=== PATIENT | male | born 1990 | race Caucasian/White ===

== ENCOUNTER 2021-03-30 01:01 | Inpatient (IN) | payer OTHER ==
[~2021-03-30] VITALS: Ht 177.8 cm; Wt 80.0 kg
[2021-03-30] MEDS ORDERED: VANCOMYCIN 1 GM VIAL ONE (01:26)
[2021-03-30] MEDS ORDERED: VANCOMYCIN 1 GM in IV D5W 250 ML IV ONE (01:30)
--- NOTE | 2021-03-30 01:41 | NUR ---
called lab for covid swab
--- NOTE | 2021-03-30 01:50 | NUR ---
pt brought in with police escorts, pt aao x4, no resp distress noted, breathing even and unlabored. c/o redness on jaylin upper and lower extremities for 2 weeks. denies any use for abx, admits to using iv drugs. pt on monitor, vss
--- NOTE | 2021-03-30 02:02 | NUR ---
covid swab sent to lab
[2021-03-30 02:17] LABS: BASOPHILS % (AUTO) 0.2 % (0.0-2.0); HEMATOCRIT 33 % (39-51); HEMOGLOBIN 10.6 g/dL (13.5-17.5); LYMPHOCYTES # (AUTO) 1.3 K/uL (0.8-4.8); LYMPHOCYTES % (AUTO) 9.4 % (20.0-44.0); MEAN CORPUSCULAR HGB CONC 33 g/dl (31.0-36.0); MEAN CORPUSCULAR VOLUME 84 fL (80-96); MONOCYTES # (AUTO) 0.9 K/uL (0.1-1.30); MONOCYTES % (AUTO) 6.5 % (2.0-12.0); NEUTROPHILS # (AUTO) 12.1 K/uL (1.8-8.9); NEUTROPHILS % (AUTO) 83.9 % (43.0-81.0); PLATELET COUNT (AUTO) 401 K/uL (150-450); RED BLOOD CELL COUNT(AUTO) 3.88 MIL/uL (4.5-6.0); WHITE BLOOD COUNT (AUTO) 14.4 K/uL (4.3-11.0)
[2021-03-30 02:25] LABS: CALCIUM, SERUM 9.4 mg/dL (8.5-10.1); CREATININE 1.6 mg/dL (0.6-1.3); POTASSIUM 3.7 mmol/L (3.5-5.1)
[2021-03-30 02:31] LABS: ALBUMIN 3.2 g/dL (3.4-5.0); BILIRUBIN,DIRECT 0.1 mg/dL (0.0-0.2); BILIRUBIN,TOTAL 0.3 mg/dL (0.2-1.0); TOTAL PROTEIN, SERUM 10.1 g/dL (6.4-8.2)
--- NOTE | 2021-03-30 02:31 | NUR ---
MULTIPLE ATTEMPTS TO START IV LINE , UNSUCCESFUL. MADE AWARE. WOOD [employer]UB NECK WHIPPER AWARE FOR PICC LINE INSERTION
[2021-03-30] MEDS ORDERED: Z GUARD REMEDY 2 OZ OINT TP PRN (04:00)
[2021-03-30] MEDS ORDERED: MAG HYDROX/AL HYDROX/SIMETH 30 ML UDC PO PRN (04:00)
[2021-03-30] MEDS ORDERED: MAGNESIUM HYDROXIDE 30 ML UDC PO PRN (04:00)
[2021-03-30] MEDS ORDERED: IV NS 0.9% 1,000 ML IV PRN (04:00)
[2021-03-30] MEDS ORDERED: ONDANSETRON HCL/PF 4 MG/2 ML VIAL IVP PRN (04:00)
[2021-03-30] MEDS ORDERED: ACETAMINOPHEN 325 MG TABLET PO PRN (04:00)
--- NOTE | 2021-03-30 04:05 | NUR ---
gave pt nourishment, all needs attended at this time
--- NOTE | 2021-03-30 05:30 | NUR ---
pt resting at this time, vss, 2 police officers at bed side at all times
[2021-03-30] MEDS ORDERED: PIPERACILLIN /TAZOBACTAM 4.5 G in IV D5W 50 ML IV SCH (06:00)
--- NOTE | 2021-03-30 07:12 | NUR ---
PICC LINE CONSENT PLACED IN CHART
[2021-03-30] MEDS: ZOSYN IVPB 3.375 G in IV D5W 50ml IV SCH ×3 (09:25→20:01)
[2021-03-30] MEDS ORDERED: PANTOPRAZOLE 40 MG TABLET.DR PO ONE (10:14)
[2021-03-30] MEDS: PANTOPRAZOLE 40 MG TABLET.DR PO SCH (10:15)
--- NOTE | 2021-03-30 10:17 | NUR ---
PICC LINE NURSE AT BEDSIDE. PATIENT A/OX4, BREATHING EVEN AND UNLABORED, NO SOB NOTED. NEEDS ATTENDED. KEPT COMFORTABLE.
--- NOTE | 2021-03-30 10:37 | NUR ---
REPORT GIVEN TO ALEISHA MARTÍNEZ FOR STEPH.
--- NOTE | 2021-03-30 10:50 | NUR ---
ALBER PICC LINE INSERTED.
[2021-03-30 11:20] VITALS: BP 139/75
--- NOTE | 2021-03-30 11:20 | NUR ---
MS METAL PAINTER NOTES RECEIVED PATIENT FROM ER VIA GURNEY ESCORTED BY 2 [employer] OFFICERS. ON ROOM AIR, BREATHING EVENLY AND UNLABORED. NOT IN DISTRESS. WITHOUT COMPLAINTS OF PAIN OR DISCOMFORT AT THIS TIME. MADE COMFORTABLE ON BED. SKIN ASSESSMENT DONE. WITH IV ACCESS AT RIGHT UPPER ARM G20 AND AT LEFT UPPER ARM PICC LINE, BOTH SALINE LOCKED, INTACT AND PATENT. SAFETY MEASURES IN PLACED. CALL LIGHT WITHIN EASY REACH. BED ON LOWEST AND LOCKED POSITION WITH SIDE RAILS UP X2. WILL CONTINUE TO MONITOR.
--- NOTE | 2021-03-30 11:23 | NUR ---
PATIENT TRANSFERRED TO ROOM 317-1 W/ PD, IN NO DISTRESS NOTED. ENDORSED TO LAURI MARTÍNEZ.
--- NOTE | 2021-03-30 11:32 | NUR ---
WOUND CARE CONSULT: PT SEEN WITH [employer] OFFICERS AT BEDSIDE. PT PRESENTS WITH BILATERAL ARM SWELLING/REDNESS WITH CRUSTED AREAS WITH PURULENT DRAINAGE WELL CRUSTED RED AREAS TO FEET AND ANKLES, PRESENT ON ADMISSION. DR CESPEDES NOTIFIED OF DPM CONSULT. FOR UPPER EXTREMITIES, DEFER TO PMD FOR POSSIBLE GENERAL SURGERY CONSULT. RECOMMENDATIONS MADE FOR SKIN PROTECTION (DRY DSG ) TO UPPER EXTREMITIES. DISCUSSED WITH NURSING STAFF. MD IN AGREEMENT WITH PLAN OF CARE.
[2021-03-30 12:00] VITALS: BP 139/75
[2021-03-30] MEDS ORDERED: LIDOCAINE 2% JEL 5 ML TUBE MC ONE (12:30)
[2021-03-30] MEDS: VANCOMYCIN 1.25 GM in IV D5W 250 ML IV SCH (13:35)
[2021-03-30] MEDS: ENOXAPARIN SODIUM 40 MG/0.4 ML DISP.SYRIN SQ SCH (13:38)
[2021-03-30 16:00] VITALS: BP 130/60
[2021-03-30] MEDS ORDERED: LIDOCAINE 2%-EPI 1:100,000 30 ML VIAL TP ONE (16:00)
--- NOTE | 2021-03-30 16:10 | NUR ---
MS RN NOTES ASSISTED SURGERY NURSE FOR INCISION AND DRAINAGE ON BOTH ARMS OF THE PATIENT. CONSENT FORM SIGNED. APPLIED WOUND DRESSING.
--- NOTE | 2021-03-30 19:20 | NUR ---
MS RN CLOSING NOTES PATIENT IS AWAKE, A/0 X4. ON ROOM AIR, BREATHING EVENLY AND UNLABORED. NOT IN DISTRESS. WITHOUT COMPLAINTS OF PAIN OR DISCOMFORT AT THIS TIME. MADE COMFORTABLE ON BED. WITH IV ACCESS AT RIGHT UPPER ARM G20 AND AT LEFT UPPER ARM PICC LINE, BOTH SALINE LOCKED, INTACT AND PATENT. SAFETY MEASURES IN PLACED. CALL LIGHT WITHIN EASY REACH. BED ON LOWEST AND LOCKED POSITION WITH SIDE RAILS UP X2. WILL ENDORSE TO NEXT SHIFT FOR STEPH.
--- NOTE | 2021-03-30 19:45 | NUR ---
MS RN OPENING NOTES: RECEIVED PATIENT AWAKE IN BED, A/OX4 ABLE TO MAKE NEEDS KNOWN, BED IN LOW POSITION, CALL LIGHTS WITHIN REACH,, NO COMPLAIN OF PAIN AND DISCOMFORT AT THIS TIME, PATIENT WITH ALBER PICC LINE WITH CECELIA #20 WITH ONGOING NSS@75ML PER HOUR INFUSING WELL, INCISION AND DRAINAGE DONE ON BUE ON BANDAGE WITH NO BLEEDING OBSERVED, PATIENT KEPT CLEAN AND DRY, WILL CONTINUE TO MONITOR.
[2021-03-30 20:00] VITALS: BP 138/65
[2021-03-30] MEDS: HYDROCODONE/APAP 5/325MG TABLET PO PRN (20:22)
[2021-03-31] MEDS: HYDROCODONE/APAP 5/325MG TABLET PO PRN ×4 (00:25→11:55)
[2021-03-31] MEDS: VANCOMYCIN 1.25 GM in IV D5W 250 ML IV SCH ×2 (00:26→12:52)
[2021-03-31] MEDS: ZOSYN IVPB 3.375 G in IV D5W 50ml IV SCH ×3 (02:10→14:00)
--- NOTE | 2021-03-31 07:02 | NUR ---
RN CLOSING NOTE: PATIENT WAS PLACE IN BED COMFORTABLY, AWAKE NO COMPLAIN OF PAIN AND DISCOMFORT AT THIS TIME, BED IN LOW POSITION, CALL LIGHTS WITHIN REACH, A/O X4, BRP, AMBULATORY WITH SUPERVISION, WITH IV LINE AT CECELIA#20 WITH NSS@75ML/HOUR INFUSING WELL. ALBER PICC LINE, PATIENT HAS INCISION AND DRAINAGE DONE ON BUE, AND RIGHT ANKLE WITH WOUND CULTURE DONE PENDING RESULT, PATIENT KEPT CLEAN AND DRY, ALL NEEDS MET, ENDORSE TO INCOMING SHIFT.
--- NOTE | 2021-03-31 07:25 | NUR ---
RN NOTES SEEN PATIENT IN BED RESTING, AWAKE AND VERBALLY RESPONSIVE. A/O X4, ABLE TO MAKE NEEDS KNOWN, NOT IN ACUTE DISTRESS. BREATHING EVEN AND UNLABORED, TOLERATING ROOM AIR. PERIPHERAL LINE AND PICC LINE INTACT AND PATENT; IVF INFUSING. PATIENT ABLE TO AMBULATE TO BATHROOM W/ STEADY GAIT. SEEN EATING BREAKFAST. DRESSING ON B/L C/D/I. SAFETY MEASURES IN PLACE. WILL CONTINUE TO MONITOR.
[2021-03-31 07:39] LABS: BASOPHILS % (AUTO) 0.2 % (0.0-2.0); EOSINOPHILS % (AUTO) 0.1 % (0.0-6.0); HEMATOCRIT 32 % (39-51); HEMOGLOBIN 10.2 g/dL (13.5-17.5); LYMPHOCYTES # (AUTO) 1.3 K/uL (0.8-4.8); LYMPHOCYTES % (AUTO) 11.8 % (20.0-44.0); MEAN CORPUSCULAR HGB CONC 32 g/dl (31.0-36.0); MEAN CORPUSCULAR VOLUME 84 fL (80-96); MONOCYTES # (AUTO) 0.7 K/uL (0.1-1.30); MONOCYTES % (AUTO) 6.5 % (2.0-12.0); NEUTROPHILS % (AUTO) 81.4 % (43.0-81.0); PLATELET COUNT (AUTO) 387 K/uL (150-450); RED BLOOD CELL COUNT(AUTO) 3.74 MIL/uL (4.5-6.0); WHITE BLOOD COUNT (AUTO) 11.1 K/uL (4.3-11.0)
[2021-03-31 07:53] LABS: CALCIUM, SERUM 9.1 mg/dL (8.5-10.1); PHOSPHORUS 3.3 mg/dL (2.5-4.9); POTASSIUM 3.8 mmol/L (3.5-5.1)
[2021-03-31 08:00] VITALS: BP 121/74
[2021-03-31 08:06] LABS: THYROID STIMULATING HORMONE 0.48 uIU/mL (0.358-3.74)
[2021-03-31] MEDS: PANTOPRAZOLE 40 MG TABLET.DR PO SCH (08:10)
[2021-03-31] MEDS: ENOXAPARIN SODIUM 40 MG/0.4 ML DISP.SYRIN SQ SCH (11:56)
--- NOTE | 2021-03-31 12:28 | NUR ---
RN NOTES SPOKE W/ JOSÉ MIGUEL FROM PHARMACY REGARDING PATIENT'S VANCO TROUGH RESULT OF 25; PER JOSÉ MIGUEL, BLOOD DRAW FOR LAB RESULT WAS NOT TIMED CORRECTLY, OKAY TO GIVE 1300 VANCO DOSE AND SCHEDULE VANCO TROUGH AGAIN TODAY.
--- NOTE | 2021-03-31 12:30 | NUR ---
RN NOTES PATIENT SEEN BY CLEVE MANNING NP; WOUND CARE AND DRESSING CHANGE DONE ON B/L UPPER EXTREMITY WOUNDS. PRE-MEDICATED W/ NORCO. PATIENT TOLERATED PROCEDURE WELL.
--- NOTE | 2021-03-31 12:53 | NUR ---
RN NOTES BLOOD DRAW DONE FOR VANCO TROUGH. VANCOMYCIN DOSE ADMINISTERED INDICATED AFTER BLOOD DRAW.
--- NOTE | 2021-03-31 14:59 | NUR ---
RN NOTES PATIENT VERBALIZED THAT HE DOES NOT WANT TO STAY AT THE HOSPITAL ANYMORE; ASKED IF PATIENT WANTS TO LEAVE AGAINST MEDICAL ADVICE AND PATIENT STATES "YES". DR. CASTRO MADE AWARE W/ NO D/C ORDER NOTED. PATIENT IS A/O X4 AND UNDERSTANDS RISKS OF LEAVING AMA. AMA FORM SIGNED BY PATIENT. EXITCARE INSTRUCTIONS PROVIDED AND ALSO SIGNED BY PATIENT. PATIENT TO CONTACT GIRLFRIEND TO PICK HIM UP; WILL REMOVE PERIPHERAL AND PICC LINES PRIOR TO DISCHARGE.
--- NOTE | 2021-03-31 15:20 | NUR ---
RN NOTES PICC LINE AND PERIPHERAL IV LINE REMOVED; NO BLEEDING NOTED.
--- NOTE | 2021-03-31 15:42 | NUR ---
RN NOTES PATIENT ACCOMPANIED TO THE LOBBY AND PICKED UP BY GIRLFRIEND VIA PRIVATE CAR. CHARGE NURSE AND MD AWARE OF DISCHARGE. INCIDENT REPORT ID# [id number] LOGGED.
== END 2021-03-31 16:00 | disposition left against medical advice (07) | DRG 853 ==
LOC: EDSEX 01:04 → ER 01:04 → TRANSITION 06:32 → MED 10:54
PROVIDERS: ADMIT Nurse Practitioner Acute Care; ATTEND Nurse Practitioner Acute Care
PROC: 0J9H0ZZ Drainage of Left Lower Arm Subcutaneous Tissue and Fascia, Open Approach (ICD-10-PCS; principal; 2021-03-30)
PROC: 0J9G0ZZ Drainage of Right Lower Arm Subcutaneous Tissue and Fascia, Open Approach (ICD-10-PCS; 2021-03-30)
PROC: 0JBQ0ZZ Excision of Right Foot Subcutaneous Tissue and Fascia, Open Approach (ICD-10-PCS; 2021-03-30)
PROC: 02HV33Z Insertion of Infusion Device into Superior Vena Cava, Percutaneous Approach (ICD-10-PCS; 2021-03-30)
PROC: B548ZZA Ultrasonography of Superior Vena Cava, Guidance (ICD-10-PCS; 2021-03-30)
DX: A41.9 Sepsis, unspecified organism (principal); N17.0 Acute kidney failure with tubular necrosis; L03.114 Cellulitis of left upper limb; L03.113 Cellulitis of right upper limb; L02.414 Cutaneous abscess of left upper limb; L02.413 Cutaneous abscess of right upper limb; E87.1 Hypo-osmolality and hyponatremia; E44.1 Mild protein-calorie malnutrition; L02.415 Cutaneous abscess of right lower limb; L03.115 Cellulitis of right lower limb; L97.319 Non-pressure chronic ulcer of right ankle with unspecified severity; F11.10 Opioid abuse, uncomplicated; D64.9 Anemia, unspecified; N18.9 Chronic kidney disease, unspecified; F17.210 Nicotine dependence, cigarettes, uncomplicated; Z20.822 Contact with and (suspected) exposure to COVID-19
CPT/HCPCS: 36415; 36569; 71045-TC; 80048-TC; 80061-TC; 80076-TC; 80202-TC; 83605-TC; 83735-TC; 84100-TC; 84443-TC; 85025-TC; 85730-TC; 87040-TC; 87070-TC; 87081-TC; A6253; A6407; C9803; G0378; J1650; J2405; J2543; J3370; J3490; J7030; J7050; J7060